=== PATIENT | male | born 1955 | race Caucasian/White ===

== ENCOUNTER → 2021-08-31 | Outpatient (CLI) | payer OTHER ==
--- NOTE | 2021-08-31 14:07 | DIREP ---
PROCEDURE:XRAY HIP MIN 2VW-RT COMPARISON:None. INDICATIONS:Z00.00 HISTORY AND PHYSICAL EVAUATION FINDINGS: BONES:No acute fracture. JOINTS:Minimal degenerative changes of the hips. SOFT TISSUES:Presumed phleboliths within the pelvis. OTHER:Degenerative changes of the imaged lower lumbar spine. CONCLUSION: 1. No acute osseous abnormality. 2. Minimal degenerative changes of the hips with additional degenerative changes of the imaged lower lumbar spine. Dictated by: Carlton Desir M.D. On 08/31/2021 at 02:04 PM
== END | disposition home or self-care (01) ==
LOC: RAD 11:56
PROVIDERS: ATTEND Internal Medicine
DX: Z00.00 Encounter for general adult medical examination without abnormal findings (principal); M47.817 Spondylosis without myelopathy or radiculopathy, lumbosacral region
CPT/HCPCS: 73502